=== PATIENT | male | born 1950 | race Caucasian/White ===

== ENCOUNTER → 2023-12-10 | Outpatient (CLI) | payer MEDICARE, OTHER, SELFPAY ==
--- NOTE | 2023-12-10 09:48 | CDU_ITS ---
Reason For Study: Retinal Artery Branch Occlusion Rt. Velocities/BP Lt. Velocities/BP Prox CCA 72/14 cm/sec. Prox CCA 66/20 cm/sec. Mid CCA 63/20 cm/sec. Mid CCA 71/19 cm/sec. Dist CCA 61/17 cm/sec. Dist CCA 55/14 cm/sec. Prox ICA 68/13 cm/sec. Prox ICA 75/20 cm/sec. Mid ICA 92/39 cm/sec. Mid ICA 80/35 cm/sec. Dist ICA 72/25 cm/sec. Dist ICA 86/37 cm/sec. Rt. ICA/CCA = 1.5. Lt. ICA/CCA = 1.2. Prox ECA 99/13 cm/sec. Prox ECA 67/10 cm/sec. Rt. Vert. 57/18 cm/sec. Lt. Vert. 53/15 cm/sec. Right Extracranial There is intimal thickening but no significant atherosclerotic plaque noted in the right common carotid artery. There is intimal thickening but no significant atherosclerotic plaque noted in the right internal carotid artery. There is no significant atherosclerotic plaque noted in the right external carotid artery. Antegrade flow is noted in the right vertebral artery. Left Extracranial There is intimal thickening but no significant atherosclerotic plaque noted in the left common carotid artery. There is heterogeneous, smooth atherosclerotic plaque noted in the left internal carotid artery. There is no significant atherosclerotic plaque noted in the left external carotid artery. Antegrade flow is noted in the left vertebral artery. Procedure Carotid Duplex 86336. This is a Carotid Duplex examination using B-mode, color flow and specral Doppler. Exam performed in department. VL/Carotid Duplex Ultrasound Interpretation Summary Normal right extracranial internal carotid. Mild (<50%) stenosis left extracranial internal carotid. Patent and antegrade vertebrals bilaterally. Ordering Physician: Perri Casanova Referring Physician: Prasanna Mnedoza Performed By: Angie Patricia, JENNIFER, RVT
[2023-12-10 10:38] LABS: Absolute Lymphocyte Count 0.95 X10^3/uL (0.83-4.51); Absolute Neutrophil Count 2.6 X10^3/uL (2.0-7.7); Basophil# 0.04 X10^3/uL; Eosinophil# 0.13 X10^3/uL; Eosinophils% 3.2 % (0-5); Hematocrit 41.8 % (40-54); Hemoglobin 13.4 g/dL (13.0-16.5); Lymphocyte # 0.95 X10^3/ul (0.83-4.51); Lymphocyte % 23.4 % (19-41); Mean Corp Hgb Conc 32.1 g/dL (32-36); Mean Corpuscular Hgb 30.8 pg (27.0-32.0); Mean Corpuscular Volume 96.1 fL (80-94); Mean Platelet Vol. 10.1 fl (6.2-12.0); Monocyte# 0.35 X10^3/uL; Monocyte% 8.6 % (0-10); NRBC Flagged by Analyzer 0 % (0-5); Neutrophil # 2.57 X10^3/uL (2.7-7.7); Neutrophil % 63.3 % (47-70); Platelet Count 155 K/mm3 (150-450); RBC Distribution Width CV 13.2 % (11.6-14.6); RBC Distribution Width SD 47.3 fl (35.1-43.9); Red Blood Count 4.35 M/mm3 (4.6-6.2); White Blood Count 4.1 K/mm3 (4.4-11.0)
[2023-12-10 11:07] LABS: CRP < 2.90 mg/L (0.0-3.0)
[2023-12-10 11:14] LABS: Erythrocyte Sedimentation Rate < 1 mm/hr (0-20)
== END | disposition home or self-care (01) ==
LOC: CVS 09:44
PROVIDERS: Referring Provider Ophthalmology; Visit Provider Ophthalmology
DX: H34.231 Retinal artery branch occlusion, right eye (principal); H43.813 Vitreous degeneration, bilateral
CPT/HCPCS: 36415; 85025; 85652; 86140; 93880